=== PATIENT | female | born 2000 | race Caucasian/White ===

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

== ENCOUNTER 2023-03-15 16:27 | Outpatient (CLI) | payer BC, OTHER, SELFPAY ==
--- NOTE | ~2023-03-15 | XR_ITS ---
EXAM: XR knee RT min 4V, XR knee LT min 4V DATE: 03/15/2023 16:57 HISTORY: PAIN IN UNSPECIFIED KNEE . COMPARISON: None available. FINDINGS: Normal mineralization. No fracture or dislocation. No lytic or blastic lesion. Joint space s are maintained. No erosion or periosteal change. Soft tissues within normal limits. IMPRESSION: Normal bilateral knee radiograph findings. Reviewed, dictated and finalized at location K. IMPRESSION: Normal bilateral knee radiograph findings.
== END 2023-03-15 16:28 ==
PROVIDERS: PCP Family Medicine; Visit Provider Family Medicine
DX: M25.562 Pain in left knee (principal); M25.561 Pain in right knee
CPT/HCPCS: 73564

== ENCOUNTER 2023-06-17 07:49 | Outpatient (CLI) | payer OTHER, SELFPAY ==
--- NOTE | ~2023-06-17 | MR_ITS ---
EXAMINATION: MR knee RT wo con DATE: 06/17/2023 08:29 INDICATION: generalized right knee pain x4yrs worsening since 01/2022, TECHNIQUE: Magnetic resonance imaging (MRI) of the right knee was performed without intravenous contr ast. Sequences included axial PD-weighted FS FSE, coronal PD-weighted FSE and PD-weighted FS FSE, sag ittal PD-weighted FSE, and sagittal T2-weighted FS FSE. COMPARISON: X-ray knees 03/15/2023 FINDINGS: Medial compartment: Apical blunting at the junction of the anterior horn/body. Cartilage intact. Lateral compartment: Meniscus and cartilage intact. Patellofemoral compartment: Minimal signal abnormality in the medial facet cartilage. Retinacula intact. Ligaments and tendons: The ACL, PCL, MCL, and LCL are intact. Remaining flexor and extensor tendons are intact. Fluid: No significant fluid collection. Osseous/other: No suspicious focal or diffuse marrow signal. IMPRESSION: Minimal apical blunting of the medial meniscus at the junction of the anterior horn and body. Minimal chondromalacia patella. Reviewed, dictated and finalized at location K.
== END 2023-06-17 07:50 ==
PROVIDERS: PCP Family Medicine; Visit Provider Orthopaedic Surgery
DX: M25.561 Pain in right knee (principal)
CPT/HCPCS: 73721

== ENCOUNTER 2024-11-19 12:15 | Emergency (ER) | payer OTHER, SELFPAY ==
--- NOTE | ~2024-11-19 | US_ITS ---
EXAMINATION: US OB <=14 wk fetus w TV DATE: 11/19/2024 16:24 CHAIR CAR DRIVER INDICATION: Vaginal bleeding and abdominal cramps. Positive test. Serum quantitative beta hCG has not resulted at the time of this examination. COMPARISON: None TECHNIQUE: Real-time transabdominal and transvaginal obstetric ultrasound. FINDINGS: 1 para 0 The uterus measures 8.6 x 4.0 x 4.2 cm. No gestational sac is identified within the uterus. The endometrium is thickened measuring 11.4 mm. Subcentimeter nabothian cysts identified within the cervix. The right ovary measures 2.4 x 2.1 x 1.9 cm. Small follicles are present. The left ovary measures 2.7 x 2.4 x 1.9 cm. A well-circumscribed anechoic avascular focus is identified within the left ovary measuring 12.3 x 16 .2 x 9.6 mm. The remainder of the left ovary is unremarkable. A small amount of free fluid is identified within the posterior cul-de-sac. IMPRESSION: Vaginal bleeding with a positive test and no serum quantitative hCG at the time of this examination combined with a small amount of free fluid within the posterior cul-de-sac and t he cystic structure within the left ovary, an ectopic gestational sac cannot be excluded. Please correlate these findings with the serum beta hCG. Products of conception in a normal should be identifiable via transvaginal ultrasound when the beta hCG level is about 1500. Ultrasound images that do not reveal an intrauterine with beta hCG levels either at or abov e the discriminatory zone (greater than 2000) should raise concern for abnormal pathology, including ectopic , heterotopic , and mass. Reviewed, dictated and finalized at location A. R CAR DRIVER IMPRESSION: Vaginal bleeding with a positive test and no serum quanti tative hCG at the time of this examination combined with a small amount of free fluid within the posterior cul-de-sac and the cystic structure within the left ovary, an ectopic gestational sac cannot be excluded. Please correlate these findings with the serum beta hCG. Products of conception in a normal should be identifiable via transva ginal ultrasound when the beta hCG level is about 1500. Ultrasound images that do not reveal an intrauterine with beta hCG le vels either at or above the discriminatory zone (greater than 2000) should rais e concern for abnormal pathology, including ectopic , heterotopic preg zachariah, and mass.
[2024-11-19 12:19] VITALS: BP 129/73; PULSE 71; RESP 16; TEMP 36.8; O2SAT 100
--- OUTSIDE RECORDS SUMMARY | 2024-11-19 13:59 | XMS_ITS | Clinical Summary ---
Author Organization [facility] Address [facility] [place] [address] Care Team Providers Care Security Ambassador Name Role Phone Tomy Cee MD Primary Care Provider [phone] Allergies No known active allergies Medications 10/14 1-20 MG-MCG tablet Take 1 tablet by mouth daily. 4 9 Active predniSONE 10 mg tablet 40mg PO x3 days then 30mg PO x3 days then 20mg PO x3 days then 10mg PO x3 days 30 tablet 1 Active triamcinolone 0.1 % cream Apply topically 2 (two) times daily. 80 g 1 Active Social History Tobacco Use Types Packs/Day Years Used Date Smoking Tobacco: Never Smokeless Tobacco: Never Alcohol Use Standard Drinks/Week Comments No 0 (1 standard drink = 0.6 oz pur e alcohol) AUDIT-C Answer Date Recorded Frequency of Alcohol Consumption Never 06/23/2019 Average Number of Drinks Not on file 019 Frequency of Binge Drinking Not on file 05/27 Comments No Sex and Gender Information Value Date Recorded Sex Assigned at Not on file Legal Sex Female 7:08 PM CDT Gender Identity Not on file Sexual Orientation Not on file Last Filed Vital Signs Vital Sign Reading Time Taken Comments Blood Pressure 118/71 09/12/2022 4:49 PM CLINICAL SPECIALTY REP Pulse 112 09/12/2022 4:49 PM CLINICAL SPECIALTY REP Temperature 36.6 C (97.9 F) 09/12/2022 4:49 PM CLINICAL SPECIALTY REP Respiratory Rate 16 09/12/2022 4:49 PM CLINICAL SPECIALTY REP Oxygen Saturation 100% 09/12/2022 4:49 PM CLINICAL SPECIALTY REP Inhaled Oxygen Concentration - - Weight 72.6 kg (160 lb) 09/12/2022 4:49 PM CLINICAL SPECIALTY REP Height 170.2 cm (5' 7 ) 09/12/2022 4:49 PM CLINICAL SPECIALTY REP Body Mass Index 25.06 09/12/2022 4:49 PM CLINICAL SPECIALTY REP Plan of Treatment Health Maintenance Due Date Last Done Comments Cervical Cancer Screening Pa p Smear (Age 21 to 29) Every 3 Years 2001 Cervical Cancer Screening 2001 Annual Physical 2004 Meningococcal B Vaccine (1 o f 2 - Standard) 2017 Hepatitis C 2019 DTaP, Tdap and Td Vaccines ( 1 - Tdap) 2020 Hepatitis B Vaccines (1 of 3 - 19+ 3-dose series) 2020 COVID-19 Vaccine ( - 2023-2 5 season) 2024 Influenza Adult (#1) 2024 HPV Vaccines Completed 03/31/2014, 05/08/2013, 01/30/2013 Meningococcal Vaccine Completed 07/11/2018 , 01/30/2013 Pneumococcal Vaccine: Pediatrics (0 to 5 Years) and At-Risk Patients (6 to 64 Years) Aged Out No longer eligible b ased on patient's age to complete this topic RSV Immunizations Under 20 Months Aged Out No longer eligible b ased on patient's age to complete this topic Insurance [facility] [employer] BLUE SHIELD BLUE CROSS BLUE SHIELD Care Teams Security Ambassador Relationship Specialty Start Date End Date Tomy Cee MD [address] [place] [address] PCP - General FAMILY PRACTICE 06/23/19
--- OUTSIDE RECORDS SUMMARY | 2024-11-19 13:59 | XMS_ITS | Patient Health Summary ---
Author Organization [facility] Address [address] [place] [address] Care Team Providers Care Operations Analyst Name Role Phone Leanne Sanchez PT Primary Care Provider Yemi mcfarlane Note from [facility],non-owned Affiliates and Associated Physician Practices is amultiple site organization consisting of ambulatory clinics and hospital sitesin [place], [place], [place] and [place]. This disclosure is being madepursuant to the Care Everywhere program and may not contain all information available regarding this patient. Last updated 18.[facility] Allergies No known active allergies Medications * Be aware that medications may not be up to date on this document. Alwaysverify current medications with the patient. * Other Reasons: oral contraceptive unknown name * ciprofloxacin 0.3% (CILOXAN) 0.3 % ophthalmic solution(Started 01/10/2018) Instill 1 drop into both eyes every 2 hours while awake x2 days, then q4 hrs WA x 5 days. * predniSONE (DELTASONE) 20 MG tablet(Started 02/27/2021) 3 tabs PO QD x 3 days, 2 tabs PO QD x 3 days, 1 tab PO QD x 3 days * benzonatate (TESSALON) 200 MG capsule(Started 06/14/2021) Take 1 (one) capsule by mouth 3 times daily Active Problems No known active problems Social History Tobacco Use Types Packs/Day Years Used Date Smoking Tobacco: Never Smokeless Tobacco: Never PHQ-2 Answer Date Recorded PHQ2 TOTAL SCORE 0 02/27/2021 Sex and Gender Information Value Date Recorded Sex Assigned at Not on file Gender Identity Not on file Sexual Orientation Not on file Last Filed Vital Signs Vital Sign Reading Time Taken Comments Blood Pressure 107/61 06/14/2021 11:08 AM CDT Pulse 51 06/14/2021 11:08 AM CDT Temperature 36.7 C (98 F) 06/14/2021 11:08 AM CDT Respiratory Rate 18 06/14/2021 11:08 AM CDT Oxygen Saturation 99% 06/14/2021 11:08 AM CDT Inhaled Oxygen Concentration - - Weight 74.5 kg (164 lb 4.8 oz) 06/14/2021 11:08 AM CDT Height 170.2 cm (5' 7 ) 06/14/2021 11:08 AM CDT Body Mass Index 25.73 06/14/2021 11:08 AM CDT Procedures * SARS-COV-2 (COVID-19) IN HOUSE(Performed 05/18/2021) Performed for Screening for viral disease * SARS-COV-2 (COVID-19) PANEL (SOIL)(Performed 05/18/2021) Performed for Screening for viral disease Results * SARS-COV-2 (COVID-19) INTERNAL (05/18/2021 2:54 PM CDT) COVID-19 PCR Not detected Not detected 05/19/2021 3:58 PM CDT [facility] Microbiology SPECIMEN FROM NASOPHARYNGEAL STRUCTURE / Unknown Collection / Unknown 05/18/2021 2:54 PM CDT 05/18/2021 2:54 PM CDT Narrative [facility] - 05/19/2021 3:58 PM CDT This Real Time RT-PCR assay was developed and its performance characteristics determined by [facility]. This test has been authorized by the Food and Drug administration (FDA)under an Emergency Use Authorization (EUA). This test has been validated in accordance with the FDA's guidance document Policy for Diagnostic Testing in Laboratories Certified to perform High Complexity Testing under CLIA prior to Emergency Use Authorization for Coronavirus Disease-2019 during the Public Health Emergency issued on November 23, 2019. FDA independent review of this validation is pending. This test is only authorized for the duration of time the declaration that circumstances exist justifying the authorization of emergency use of in vitro diagnostic tests for detection of SARS-CoV-2 virus and/or diagnosis of COVID-19 infection under section 564(b)(1) of the Act, 21 U.S.C 360bbb-3 (b)(1), unless the authorization is terminated or revoked sooner. Fact Sheets for this EUA assay are available upon request. Symone Vasquesbritany Castillo DORMITORY COUNSELOR-HAMMER SHOP SUPERVISOR LAB - MICR OBIOLOGY ORDERABLES [facility] [address] [place], [place] [address], [facility] [phone] Care Teams Operations Analyst Relationship Specialty Start Date End Date Leanne Sanchez, PT PCP - General 08/08/12
--- OUTSIDE RECORDS SUMMARY | 2024-11-19 13:59 | XMS_ITS | Clinical Summary ---
Author Organization [facility] Address [address] [place] [address] Care Team Providers Care Superintendent Sanitation Name Role Phone Leanne Sanchez PT Primary Care Provider Yemi mcfarlane Source Comments [facility],non-owned Affiliates and Associated Physician Practices is amultiple site organization consisting of ambulatory clinics and hospital sitesin [place], [place], [place] and [place]. This disclosure is being madepursuant to the Care Everywhere program and may not contain all information available regarding this patient. Last updated 18.[facility] Allergies No known active allergies Medications * Be aware that medications may not be up to date on this document. Alwaysverify current medications with the patient. Medication Sig Dispensed Refills Start Date End Date Status OtherIndications:ora l contraceptive unknown name Reasons: oral contraceptive unknown name Active ciprofloxacin 0.3% (CILOXAN) 0.3 % ophthalmic solutionIndications: Other mucopurulent conjunctivitis of both eyes Instill 1 drop into both eyes every 2 hours while awake x2 days, then q4 hrs WA x 5 days. 10 mL 01/10/2018 Active predniSONE (DELTASONE) 20 MG tablet 3 tabs PO QD x 3 days, 2 tabs PO QD x 3 days, 1 tab PO QD x 3 days 18 tablet 02/27/2021 Active benzonatate (TESSALON) 200 MG capsule Take 1 (one) capsule by mouth 3 times daily 60 capsule 06/14/2021 Active Active Problems No known active problems Family History Relation Name Status Comments Mother Alive Social History Tobacco Use Types Packs/Day Years [...] Mass Index 25.73 06/14/2021 11:08 AM CDT Plan of Treatment Health Maintenance Due Date Last Done Comments PAP SMEAR 2001 HIV SCREENING 2016 HPV VACCINE (1 - 3-dose series) 2016 CHLAMYDIA/GONORRHEA SCREENING 2017 MENINGOCOCCAL (Group B) VACC INE (1 of 2 - Standard) 2017 HEPATITIS C SCREENING 11/14/2019 DTAP/TDAP/TD VACCINES (1 - Tdap) 2020 HEPATITIS B VACCINE (1 of 3 - 19+ 3-dose series) 2020 COVID-19 VACCINE (1 - 2023-2 5 season) 2024 INFLUENZA VACCINE (#1) 2024 DEPRESSION SCREENING 09/25/2024 ZOSTER VACCINE (1 of 2) 2051 HIB VACCINE Aged Out No longer eligi ble based on patient's age to complete this topic MENINGOCOCCAL VACCINE Aged Out No darlene frankie eligible based on patient's age to complete this topic PNEUMOCOCCAL VACCINE Aged Out No long er eligible based on patient's age to complete this topic Care Teams Superintendent Sanitation Relationship Specialty Start Date End Date Lenane Sanchez, PT PCP - General 08/08/12
--- OUTSIDE RECORDS SUMMARY | 2024-11-19 13:59 | XMS_ITS | Data Portability ---
Author Organization [facility], Main Office Address [address] [place] [address] Care Team Providers Care Lsw Name Role Phone LASHAY HORNER Primary Care Provider LASHAY HORNER Referring Provider Assessment Encounter Date Assessment Date Assessment LastModified by Organization Details LastModified Time 04/03/2023 04/03/2023 Impression: Patient has bilateral anterior knee pain syndrome. She was here with her mother today and I discussed that it is possible she may have some early wear of the cartilage surfaces to explain the apparent subtle narrowing of the patellofemoral joint space bilaterally but the x-rays are not very accurate and making that determination an MRI scan is much more accurate. 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 We talked about wearing optimal shoes that she would feel comfortable hiking and. She has been for bit to wear shoes at her current job. I have discussed with her that this problem is overuse problem that results in inflammation and sensitivity of the parapatellar soft tissues. I explained that in a deep squat the pressure the patellofemoral joint and the parapatellar soft tissues 7 times body weight and doing this excessively exacerbates the soreness. She has just a little over her ideal body weight and losing weight can be helpful. I recommended a course of physical therapy for her focusing on hamstring stretching as her hamstrings are somewhat tight and hip external rotation abduction and core strengthening. We will specifically avoid any quadriceps strength. She has excellent quadriceps bulk and strength bilaterally. To quiet down the inflammation will prescribe ibuprofen 800 mg 3 times a day for 4 weeks. Possible side effects were discussed she will take this with food. Was given instructions she described possible side effects. I will see her back in 6 weeks to assess her progress. 45 minutes were spent in total care this patient with more than half the time spent in vldb-sj-fuwn care. If her symptoms do not improve, we can consider MRI scan of either knee to evaluate for possible chondral lesion in the patellofemoral joint. Not available 04/09/2023 13:46:42 05/31/2023 05/31/2023 Patient returns for follow-up of anterior knee pain right greater than left. She was last seen 8 weeks ago. She went to physical therapy for 2 visits is been doing home exercises anterior knee pain protocol. She is now back in school so she has not been as consistent with her home exercise program. She is still taking ibuprofen averaging about 2 per day of the 800 mg tablets. Occasionally 3 times a day. She notes that her right knee is only slightly improved. Her left knee symptoms have resolved. The left knee was only mild before. She has noted that when she wore sandals a few days ago she had much more anterior knee pain on the right and she purchased a couple of pairs of [employer] shoes which have all better arch support that have been helpful. On exam today while supine her right leg is slightly internally rotated. She notes that she has in toed a little bit on the right throughout her life. In the prone position she has internal rotation of the right hip to 60 external rotation 40 which indicates increased femoral anteversion. There is no effusion in the right knee. She had full range of motion negative Zainab's no mediolateral joint line tenderness normal stability. Hip range of motion cause no discomfort negative Stinchfield maneuver. 5/5 quadriceps strength. She had moderate discomfort with patellofemoral grind and pain with patellofemoral inhibition test. Previous x-rays again do show patella Wendy. Impression: Patient has persistent anterior knee syndrome. She may have early degenerative changes of the patellofemoral joint that did not show well on x-ray. She has predisposing factors for this with the patella Roberts and increased femoral anteversion. I reiterated to her that she must avoid sandals and should wear shoes with arch support belt and at all times. Having no arch support allows the foot to over pronate which results in additional internal rotation posterior of the leg which aggravates patellofemoral pain. She should continue with her home exercise program for year to get optimal benefit from the core hip abduction external rotation strengthening exercises. I have discussed her the option of obtaining an MRI scan to evaluate for additional pathology. The most likely pathology given her symptomatology would be chondromalacia of the patella or possibly early degenerative changes of patellofemoral joint. She wants to speak with her mother about this before scheduling the MRI scan as she has under her mother's insurance and she will call us if she would like to proceed that. 20 minutes were spent total care this patient more than half the time spent in nqsc-hf-enbs care. Not available 05/31/2023 09:13:30 06/29/2023 06/29/2023 patient returns after MRI scan of her left knee. It shows no abnormalities. I reviewed the findings with the patient. The radiologist noted minimal apical blunting of the medial meniscus at junction of anterior horn and body. There are no nerve endings in this region of the meniscus in this would not be expected to cause any symptoms whatsoever. The articular cartilage in the patellofemoral joint looks perfect. No effusion the knee structures look normal. Patient notes that over the last month she has been doing much better overall. She has been wearing her schedule his tennis shoes she is avoiding her sandals. She has neglected to continue with her home exercise program and I have reviewed this with her today I would recommend she keep working on that until she is completely asymptomatic. She did have mild symptoms after she walked 30 minutes to a [employer] game. and a [address] to the game with her knee bent was a little bit uncomfortable but other than this is she is doing well. Impression: Anterior knee pain syndrome left knee. Patient is doing much better overall. It would seem that the biggest changes her no longer using the flip flops all the time and might of been a primary factor and by she developed this problem when she did. I am happy to see her back if she has further problems with this. Recheck p.r.n.. 20 minutes were spent total care this patient more than half the time spent in ebzj-bk-ceeo care. Not available 06/29/2023 15:41:57 Plan of Treatment Reminders Order Date Submit Date Provider Last Modified By Organization Details Last Modified Time Details Appointments None recorded. Lab None recorded. Referral None recorded. Procedures None recorded. Surgeries None recorded. Imaging None recorded. Medication Orders ibuprofen 800 mg tablet 2022 023 [id number], [address], [place], [place], [phone], 11:24:56 Patient TargetsNo targets recorded. Patient InstructionsNo instructions recorded. Reason for Referral None Reported. Results Created Date Observation Date Name Description Value Unit Range Abnormal Flag Note LastModifiedBy Organization Detail LastModifiedTime 03/17/20 23 03/15/2023 XR, knee, 4 or more view No observ ation record ed. [email or web address] Not Available 02/24 12:13:48 06/17/2006/17/2023 MRI, knee, w/o contr ast No observ ation record ed. [email or web address] [facility] [address], [place], [address], 06/20/2023 12:45:20 Result Notes None recorded. Problems Name Problem SNOMED Code Status Onset Date Resolution Date Notes Provider Name and Address Organization Details Recorded Time Pain of bilateral knee joints 61945278166956 4 Active 2022 ANTOLIN Craft null, [facility] [employer] [facility] 3 16:40:44 Pain of right knee joint 63789703474696 0 Active 2022 Taryn Garner CMA null, [employer] [facility] [employer] [facility] 3 16:16:00 Pain of left knee joint 25487562572174 7 Active 2022 ANTOLIN Craft null, [employer] [facility] [employer] [facility] 3 14:57:06 Problem Notes None recorded. Procedures Surgical History None recorded. Imaging Results Imaging Date Name Status LastModified by Organiz ation Details LastModified Time 03/15/2023 XR, knee, 4 or more view completed [email or web address] Information not available 03/17/2023 12:13:48 06/17/2023 MRI, knee, w/o contrast completed [email or web address] [facility] [address], [place], [address], 06/20/2023 12:45:20 Procedure Notes None recorded. Medical Equipment None Reported. Medications Name Sig Start Date Stop Date Status Note LastModified by Organization Details LastModified Time ibuprofen 800 mg tablet TAKE 1 TABLET BY MOUTH THREE TIMES DAILY. TAKE WITH FOOD active Not Available Not Available No t Available neomycin-jason ymyxin-dexam eth 3.5 mg/mL-10,000 unit/mL-0.1% eye drops INSTILL 1 DROP IN RIGHT EYE FOUR TIMES DAILY FOR 4 DAYS 04/03 completed Not Available Not Available Not Available amoxicillin 875 mg-potassium clavulanate 125 mg tablet TAKE 1 TABLET BY MOUTH EVERY 12 HOURS FOR 10 DAYS 04/03 completed Not Available Not Available Not Available Vitals Date Recorded Body height Body mass index (BMI) Body weight Provider Name and Address Organization Details Last Updated DateTime 04/03/2023 167.64 cm 26.1 kg/m2 89879.96 g Cassandra BarrINNAJarocho [facility] [employer] 04/03/2023 16:42:53 Date Recorded Body height Provider Name an d Address Organization Details Last Updated DateTime 05/31/2023 167.64 cm Cassandra ANTOLIN Barr [facility] 05/31/2023 08:42:29 Date Recorded Body height Provider Name an d Address Organization Details Last Updated DateTime 06/29/2023 167.64 cm Cassandra ANTOLIN Barr [facility] 06/29/2023 14:56:24 Social History Question Answer Notes LastModified by Organizat ion Details LastModified Time Tobacco Smoking Status Never Smoker Cassandra Barr [facility] 04/03/2023 16:40:18 What Is Your Level Of Alcohol Consumption? None [email or web address] Information not available 04/03/2023 Sex: Unknown Functional Status None recorded. Mental Status None recorded. Family History Nothing Reported. Medical History No medical history recorded. Gynecological HistoryNo gynecological history recorded. Obstetrics History GPAL:G 0 P 0 0 0 0 Past Encounters Encounter ID Performer Location Encounter Start Date Encounter Closed Date Diagnosis/Indication Diagnosis SNOMED-CT Code Diagnosis ICD10 Code Diagnosis Note [id number] Rico Costa MD [facility] [place] [address] [place] [address] 04/03/2023 16:18:21 04/10/2023 09:57:09 Pain of bilateral knee joints [id number] 94136 M25.561 M25.394 [id number] Rico Costa MD [facility] [place] [address] [place] [address] 05/31/2023 08:37:46 05/31/2023 09:16:28 Pain of bilateral knee joints 7290779860 61684 M25.561 M25.742 [id number] Rico Costa MD [facility] [address] [address] 06/29/2023 14:54:35 06/29/2023 15:46:33 Pain of left knee joint [id number] 32014 M25.562 Health Concerns Section Related Observation LastModified by Organization Detai ls LastModified Time None Recorded Concern Status LastModified by Organization Details LastModified Time None Recorded Advance Directives Directive None Recorded Payers Encounter Date Sequence Insurance Name Policy Number Policy Vernon Covered Member ID Vernon Member ID Guarantor Name 04/03/2023 1 R [id number] Laury Garber [id number] Flori Garber 05/31/2023 1 UMR [id number] Laury Garber [id number] Flori Garber 06/29/2023 1 UMR [id number] Laury Garber [id number] Flori Garber Notes Date Note Type Note Provider Name and Address Organization Details Recorded Time 04/03/2023 text/html patient is 82-year-old female who presents for evaluation of her bilateral knee pain. She has had symptoms for years off and on. 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 Her right knee causes discomfort if she sits or stands too long anteromedially and anterolaterally. Her left bothers her less frequently but if she kneels on it she has severe pain in the anterior aspect of her left knee and will remain sore for a couple of days afterwards. One month ago after such an incident she had pain all day. 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 She had an evaluation of her knee pain 2019 at a course of physical therapy [facility] her [facility]. She notes a history of fracture in the left foot 7 great. She rarely takes 800 mg ibuprofen. She has tolerated these the past. Especially sitting in movie she does not tolerate sitting too long with her right knee flexed. She had x-rays of her left knee And right knee at [facility] 03/15/2023. There were no abnormalities noted with the radiologist. These views including standing AP standing lateral sunrise And standing Views in some degree of flexion. Insall ratio measured from lateral views was 1.5 indicating that she has patella Roberts bilaterally. [place] views suggest that she may have some joint space narrowing to the lateral trochlea and lateral facet bilaterally. there is subtle widening of the medial patellofemoral joint space associated. Her patellae track centrally bilaterally. There are no hypertrophic changes or subchondral bone irregularities noted. Rico Costa MD [address] [place] [address], [facility] [address], [place], [address], [facility] 04/09/2023 13:46:53 OBGyn Episode No OBEpisode recorded.
--- OUTSIDE RECORDS SUMMARY | 2024-11-19 13:59 | XMS_ITS | Referral Summary ---
Author Organization [facility] Address [address] [place] [address] Care Team Providers Care Textile Coating Machine Operator Name Role Phone Leanne Sanchez PT Primary Care Provider Yemi mcfarlane Source Comments [facility] [employer] [facility],non-owned Affiliates and Associated Physician Practices is amultiple site organization consisting of ambulatory clinics and hospital sitesin [place], [place], [place] and [place]. This disclosure is being madepursuant to the Care Everywhere program and may not contain all information available regarding this patient. Last updated 18.[facility] [employer] [facility] Allergies No known active allergies Medications * [...] Active Active Problems No known active problems Social [...] 06/14/2021 11:08 AM CDT Plan of Treatment Not on file Care Teams Textile Coating Machine Operator Relationship Specialty Start Date End Date Leanne Sanchez, PT PCP - General 08/08/12
[2024-11-19 14:10] VITALS: BP 122/65; PULSE 66; RESP 14; TEMP 36.4; O2SAT 100
[2024-11-19 16:20] LABS: Basophils Percent Auto 0.5 % (0.2-1.2); Eosinophils Absolute Auto 0.1 K/mm3 (0-0.3); Eosinophils Percent Auto 1.5 % (0-4.4); Hematocrit 41.9 % (37.0-47.0); Hemoglobin 13.4 g/dL (12.0-15.0); Immature Granulocyte Absolute 0.03 K/mm3 (0.00-0.031); Immature Granulocyte Percent A 0.4 % (0-0.5); Lymphocytes Absolute Auto 2.28 K/mm3 (0.9-3.2); Lymphocytes Percent Auto 26.7 % (18.3-44.2); Mean Corpuscular Hemoglobin 28.9 pg (26-34); Mean Corpuscular Volume 90.5 fl (80-100); Mean Platelet Volume 9.9 fl (7.4-10.4); Monocytes Absolute Auto 0.7 K/mm3 (0.1-0.6); Monocytes Percent Auto 7.6 % (2.6-8.5); Neutrophils Absolute Auto 5.4 K/mm3 (1.3-6.7); Neutrophils Percent Auto 63.3 % (45.5-73.1); Platelet Count Result 224 k/mm3 (150-375); Red Blood Count 4.63 M/mm3 (4.2-5.4); Red Cell Distribution Width 12.1 % (11.5-14.5); White Blood Count 8.6 K/mm3 (4.5-10.0)
[2024-11-19 16:23] LABS: BEDSIDEPREGUCG Positive (Negative)
[2024-11-19 16:27] LABS: Alanine Aminotransferase 17 U/L (6-35); Albumin Level 4.4 g/dL (3.5-5.1); Alkaline Phosphatase 58 U/L (38-126); Anion Gap 7 mmol/L (4-12); Aspartate Amino Transferase 22 U/L (14-36); Bilirubin,Total 0.5 mg/dL (0.2-1.3); Blood Urea Nitrogen 6 mg/dL (7-17); Calcium 9.4 mg/dL (8.4-10.2); Carbon Dioxide 28 mmol/L (22-30); Chloride 106 mmol/L (98-107); Estimated CRCL calculation 150 ml/min; Estimated Glomerular Filt Rate > 60; Glucose 88 mg/dL (65-110); Potassium 3.7 mmol/L (3.4-5.0); Sodium 141 mmol/L (137-145)
[2024-11-19 16:35] LABS: INR 0.9; Prothrombin Time 12.7 Seconds (11.1-14.7)
[2024-11-19 16:36] LABS: Partial Thromboplastin Time 28.7 Seconds (22.3-36.8)
[2024-11-19 16:42] LABS: Beta HCG Quantitative 241.28 mIU/ML
--- NOTE | 2024-11-19 17:47 | ED.PREGNANCY ---
HPI - General Chief complaint: Vaginal Bleeding Stated complaint: 5 weeks preg, vaginal bleeding Time Seen by Provider: 11/19/24 17:15 History of Present Illness HPI Narrative: Patient is a 24-year-old female who presents to the ER with complaints of vaginal bleeding following a positive test. She reports she had an appointment set up with an OBGYN on 03 December, but called him today and they advised her to come to the ER for evaluation. Patient reports her last menstrual period was around October 12, 2024. Earlier today she started noticing vaginal bleeding that has led to a fair amounts of clots and vaginal discomfort. Patient denies any other medical history related to this ER visit. She denies any urinary symptoms, abdominal pain, back pain, recent fevers, or signs/symptoms of infection. Related Data Allergies Allergy/AdvReac Type Severity Reaction Status Date / Time No Known Allergies Allergy Verified 09/30/20 09:15 Review of Systems Review of Systems: All systems reviewed & are unremarkable except as noted in HPI and below PMFSH Past Medical History Medical History Healthy adolescent Family History Family History Grandparent Carcinoma of colon Social History Social History Smoking status: Never smoker Alcohol intake: never Substance use: never Exam Narrative: GENERAL: Well appearing, well-nourished, non-toxic, in no acute distress. HEAD: Normocephalic, atraumatic. NECK: Supple. No adenopathy, no masses. RESPIRATORY: Airway patent, respirations nonlabored. Clear to auscultation bilaterally, no rales, rhonchi, wheezing. CARDIOVASCULAR: Regular rate and rhythm without murmurs, rubs, or gallops. Peripheral pulses 2+ and equal bilaterally. ABDOMINAL: Soft, nontender, nondistended, no hepatosplenomegaly. Normoactive BS. MUSCULOSKELETAL: Moves all extremities. Strength/ROM intact without gross deformities. SKIN: Warm, dry, normal color. No rashes. NEURO: A&O X3. Speech clear. Cranial nerves II-XII grossly intact. No ataxic movements. PSYCHIATRIC: Appropriate mood and affect. Normal interaction. *Pt declined a vaginal exam. Course Vital Signs Vital signs: Vital Signs Temperature 36.8 C 11/19/24 12:19 Pulse Rate 71 11/19/24 12:19 Respiratory Rate 16 11/19/24 12:19 Blood Pressure 129/73 11/19/24 12:19 Pulse Oximetry 100 11/19/24 12:19 Temperature 36.4 C L 11/19/24 14:10 Pulse Rate 66 11/19/24 14:10 Respiratory Rate 14 11/19/24 14:10 Blood Pressure 122/65 11/19/24 14:10 Pulse Oximetry 100 11/19/24 14:10 MDM - OB/Uterine Contractions MDM Narrative Medical decision making narrative: Patient is a 24-year-old female who presents to the ER with complaints of vaginal bleeding following a positive test. She reports she had an appointment set up with an OBGYN on 03 December, but called him today and they advised her to come to the ER for evaluation. Patient reports her last menstrual period was around October 12, 2024. Earlier today she started noticing vaginal bleeding that has led to a fair amounts of clots and vaginal discomfort. Patient denies any other medical history related to this ER visit. She denies any urinary symptoms, abdominal pain, back pain, recent fevers, or signs/symptoms of infection. Labs Ordered: CBC, CMP, beta hCG quant, INR, APTT, UA Imaging Ordered: Pelvic ultrasound Medications Ordered: None necessary Results: Pt's ultrasound indicates Vaginal bleeding with a positive test and no serum quantitative hCG at the time of this examination combined with a small amount of free fluid within the posterior cul-de-sac and the cystic structure within the left ovary, an ectopic gestational sac cannot be excluded. Patient's urinalysis unremarkable for urinary tract infection. Diagnosis: Threatened miscarriage, vaginal bleeding Consults: None necessary (pt already has an OBGYN established) Patient Education/Shared MDM: Results shared with patient. She was advised to call her OBGYN tomorrow for repeat HCG levels and follow-up. Patient strongly advised to maintain hydration status upon discharge. She will be discharged home with no new prescriptions. Strict return precautions provided. Patient verbalized understanding is in agreement with plan. Vital signs stable at time of discharge. All questions answered. Differential Diagnosis Differential diagnosis: Likely other (threatened miscarriage, urinary tract infection, subchorionic hemorrhage, ectopic ) Lab Data Attestation: I reviewed the patient's lab results. 11/19/24 16:09 11/19/24 16:09 Labs: Lab Results 11/19/24 11/19/24 11/19/24 Range/Units 16:09 16:18 17:55 WBC 8.6 (4.5-10.0) K/mm3 RBC 4.63 (4.2-5.4) M/mm3 Hgb 13.4 (12.0-15.0) g/dL Hct 41.9 (37.0-47.0) % MCV 90.5 (80-100) fl MCH 28.9 (26-34) pg MCHC 32.0 (32-36) g/dl RDW 12.1 (11.5-14.5) % Plt Count 224 (150-375) k/mm3 MPV 9.9 (7.4-10.4) fl Immature Gran % (Auto) 0.4 (0-0.5) % Neut % (Auto) 63.3 (45.5-73.1) % Lymph % (Auto) 26.7 (18.3-44.2) % [place] % (Auto) 7.6 (2.6-8.5) % Eos % (Auto) 1.5 (0-4.4) % Baso % (Auto) 0.5 (0.2-1.2) % Lymph # (Auto) 2.28 (0.9-3.2) K/mm3 [place] # (Auto) 0.7 H (0.1-0.6) K/mm3 Eos # (Auto) 0.1 (0-0.3) K/mm3 Baso # (Auto) 0.0 (0.0-0.1) K/mm3 Abs Immat Gran (auto) 0.03 (0.00-0.031) K/mm3 Absolute Neuts (auto) 5.4 (1.3-6.7) K/mm3 Absolute Nucleated RBC 0.000 (0.0-0.012) K/mm3 Nucleated RBC % 0.0 (0.0-0.2) % PT 12.7 (11.1-14.7) Seconds INR 0.9 APTT 28.7 (22.3-36.8) Seconds Sodium 141 (137-145) mmol/L Potassium 3.7 (3.4-5.0) mmol/L Chloride 106 (98-107) mmol/L Carbon Dioxide 28 (22-30) mmol/L Anion Gap 7 (4-12) mmol/L BUN 6 L (7-17) mg/dL Creatinine 0.47 L (0.7-1.0) mg/dL Estim Creat Clear Calc 150 ml/min Estimated GFR > 60 (59 - ) Glucose 88 (65-110) mg/dL Calcium 9.4 (8.4-10.2) mg/dL Total Bilirubin 0.5 (0.2-1.3) mg/dL AST 22 (14-36) U/L ALT 17 (6-35) U/L Alkaline Phosphatase 58 (38-126) U/L Total Protein 7.0 (6.3-8.2) g/dL Albumin 4.4 (3.5-5.1) g/dL Beta HCG, Quant 241.28 mIU/ML Urine Color Yellow (Yellow) Urine Appearance Clear (Clear) Urine pH 7.5 (5.0-9.0) Ur Specific [place] 1.004 (1.001-1.035) Urine Protein Negative (Negative) mg/dL Urine Glucose (UA) Negative (Negative) mg/dL Urine Ketones Negative (Negative) mg/dL Ur Blood (Man) 1+ H (Negative) Urine Nitrate Negative (Negative) Urine Bilirubin Negative (Negative) Urine Urobilinogen 0.2 (<2.0) mg/dL Add Ur Microanalysis Reviewed Leukocyte Esterase Rfl Negative (Negative) MELINA/UL Urine RBC 0-2 (0-2) /hpf Urine WBC 0-5 (0-3) /hpf Ur Squamous Epith Cells None seen (Few) /hpf Urine Bacteria None seen /hpf Urine Casts 0-2 POC Urine HCG, Qual Positive (Negative) Blood Type AB Positive Antibody Screen Negative Screen Not Reportable Baby's Blood Type Not Reportable Baby's SAGE Not Reportable Doses of RhIg Required 0 Imaging Data Attestation: I personally reviewed and interpreted this imaging study as follows: Radiologist's impression: Impressions Obstetrics Ultrasound 11/19/24 16:24 IMPRESSION: Vaginal bleeding with a positive test and no serum quantitative hCG at the time of this examination combined with a small amount of free fluid within the posterior cul-de-sac and the cystic structure within the left ovary, an ectopic gestational sac cannot be excluded. Please correlate these findings with the serum beta hCG. Products of conception in a normal should be identifiable via transvaginal ultrasound when the beta hCG level is about 1500. Ultrasound images that do not reveal an intrauterine with beta hCG levels either at or above the discriminatory zone (greater than 2000) should raise concern for abnormal pathology, including ectopic , heterotopic , and mass. Discharge Plan Discharge Clinical Impression: Vaginal bleeding, Threatened Patient Disposition: Home, Self-Care Condition: Stable Instructions: Antibiotic Form, Threatened Miscarriage (ED) Additional Instructions: Please return to the ER with an worsening symptoms, including severe abdominal pain or increased vaginal bleeding. Follow-up with your OBGYN tomorrow. No new medications were prescribed. Patient Language: Croatian Prescriptions: No Action norgestimate-ethinyl estradiol [Ortho Tri-Cyclen (28)] 0.18/0.215/0.25 mg-35 mcg (28) tablet 1 tablet PO DAILY Qty: 84 3RF Follow-up/Referrals: Tomy Cee MD [Primary Care Provider] - Stand Alone Forms: Work/School Release IP Time of Disposition: 17:59
[2024-11-19 18:16] LABS: Add Urine Microscopic? YES; Appearance Urine Clear (Clear); Bacteria Urine None Seen /hpf; Bilirubin Urine Negative (Negative); Blood Urine 1+ (Negative); Color Urine Yellow (Yellow); Glucose Urine UA Negative (Negative); Ketones Urine Negative (Negative); Leukocyte Esterase Ur Negative LEU/UL (Negative); Need Manual Microscopic Reviewed; Nitrate Urine Negative (Negative); Non Pathogenic Casts 0-2; Protein Urine Negative (Negative); RBC Urine 0-2 /hpf (0-2); Specific Grav Ur 1.004 (1.001-1.035); Squamous Epithelial Cell Urine None Seen /hpf (Few); Urobilinogen Urine 0.2 mg/dL (<2.0); WBC Urine 0-5 /hpf (0-3); pH Urine 7.5 (5.0-9.0)
--- OUTSIDE RECORDS SUMMARY | 2024-11-19 18:59 | XMS_ITS | Referral Summary ---
Author Organization [facility] Address [address] [place] [address] Care Team Providers Care Transplant Registered Nurse Name Role Phone Leanne Sanchez PT Primary Care Provider Yemi mcfarlane Source Comments [facility],non-owned Affiliates and Associated Physician Practices is amultiple site organization consisting of ambulatory clinics and hospital sitesin [place], [place], [place] and [place]. This disclosure is being madepursuant to the Care Everywhere program and may not contain all information available regarding this patient. Last updated 18.[facility] Allergies No known active allergies Medications * [...] of Treatment Not on file Care Teams Transplant Registered Nurse Relationship Specialty Start Date End Date Leanne Sanchez, PT PCP - General 08/08/12
--- OUTSIDE RECORDS SUMMARY | 2024-11-19 18:59 | XMS_ITS | Clinical Summary ---
Author Organization [facility] Address [address] [place] [address] Care Team Providers Care Student Assistance Counselor Name Role Phone Leanne Sanchez PT Primary Care Provider Yemi mcfarlane Source Comments [facility],non-owned Affiliates and Associated Physician Practices is amultiple site organization consisting of ambulatory clinics and hospital sitesin [place], [place], [place] and [place]. This disclosure is being madepursuant to the Care Everywhere program and may not contain all information available regarding this patient. Last updated 18.[facility] Allergies No known active allergies Medications * [...] age to complete this topic Care Teams Student Assistance Counselor Relationship Specialty Start Date End Date Leanne Sanchez, PT PCP - General 08/08/12
--- OUTSIDE RECORDS SUMMARY | 2024-11-19 18:59 | XMS_ITS | Patient Health Summary ---
Author Organization [facility] Address [address] [place] [address] Care Team Providers Care Tobacco Stemmer Machine Name Role Phone Leanne Sanchez PT Primary Care Provider Yemi mcfarlane Note from [facility] [place],non-owned Affiliates and Associated Physician Practices is amultiple site organization consisting of ambulatory clinics and hospital sitesin [place], [place], [place] and [place]. This disclosure is being madepursuant to the Care Everywhere program and may not contain all information available regarding this patient. Last updated 18.[facility] Allergies No known active allergies Medications * [...] detected Not detected 05/19/2021 3:58 PM CDT [facility] Microbiology SPECIMEN FROM NASOPHARYNGEAL STRUCTURE / Unknown Collection / Unknown 05/18/2021 2:54 PM CDT 05/18/2021 2:54 PM CDT Narrative [facility] - 05/19/2021 3:58 PM CDT This Real Time RT-PCR assay was developed and its performance characteristics determined by [facility]. This test has been authorized [...] are available upon request. Symone Vasquesbritany Castillo LAWN SPRINKLER INSTALLER-CABINET BUILDER LAB - MICR OBIOLOGY ORDERABLES [facility] [address] [place], [place] [address], [facility] [phone] Care Teams Tobacco Stemmer Machine Relationship Specialty Start Date End Date Leanne Sanchez, PT PCP - General 08/08/12
== END 2024-11-19 18:22 | disposition home or self-care (01) ==
PROVIDERS: Physician Assistant; Emergency Provider Registered Nurse; PCP Family Medicine
DX: O20.0 Threatened abortion (principal); Z3A.01 Less than 8 weeks gestation of pregnancy
CPT/HCPCS: 36415; 76801; 76817; 80053; 81001; 81025; 84702; 85025; 85461; 85610; 85730; 86850; 86900; 86901; 99284

== ENCOUNTER 2024-11-28 16:47 | Outpatient (CLI) | payer OTHER, SELFPAY ==
--- OUTSIDE RECORDS SUMMARY | 2024-11-28 17:06 | XMS_ITS | Clinical Summary ---
Author Organization [facility] Address [address] [place] [address] Care Team Providers Care Customer Account Coordinator Name Role Phone Leanne Sanchez PT Primary Care Provider Yemi mcfarlane Source Comments [facility],non-owned Affiliates and Associated Physician Practices is amultiple site organization consisting of ambulatory clinics and hospital sitesin [place], [place], [place] and [place]. This disclosure is being madepursuant to the Care Everywhere program and may not contain all information available regarding this patient. Last updated 18.[facility] Allergies No known active allergies Medications * [...] age to complete this topic Care Teams Customer Account Coordinator Relationship Specialty Start Date End Date Leanne Sanchez, PT PCP - General 08/08/12
--- OUTSIDE RECORDS SUMMARY | 2024-11-28 17:06 | XMS_ITS | Patient Health Summary ---
Author Organization [facility] Address [address] [place] [address] Care Team Providers Care Lna Name Role Phone Leanne Sanchez PT Primary Care Provider Yemi mcfarlane Note from [facility],non-owned Affiliates and Associated Physician Practices is amultiple site organization consisting of ambulatory clinics and hospital sitesin [place], [place], [place] and [place]. This disclosure is being madepursuant to the Care Everywhere program and may not contain all information available regarding this patient. Last updated 18.[facility] Allergies No known active allergies Medications [...] detected Not detected 05/19/2021 3:58 PM CDT [facility]CRO[facility] Microbiology SPECIMEN FROM NASOPHARYNGEAL STRUCTURE / Unknown Collection / Unknown 05/18/2021 2:54 PM CDT 05/18/2021 2:54 PM CDT Narrative [facility] - 05/19/2021 3:58 PM CDT This Real Time RT-PCR assay was developed and its performance characteristics determined by [facility]. This test has been authorized [...] are available upon request. Symone Vasquesbritany Castillo SUPERVISOR CURING ROOM-AUTOMOTIVE ELECTRICAL HELPER LAB - MICR OBIOLOGY ORDERABLES [facility] [address] [place], [place] [address], [facility] [phone] Care Teams Lna Relationship Specialty Start Date End Date Leanne Sanchez, PT PCP - General 08/08/12
--- OUTSIDE RECORDS SUMMARY | 2024-11-28 17:06 | XMS_ITS | Referral Summary ---
Author Organization [facility] Address [address] [place] [address] Care Team Providers Care Earring Maker Name Role Phone Leanne Sanchez PT Primary Care Provider Yemi mcfarlane Source Comments [facility] [employer],non-owned Affiliates and Associated Physician Practices is amultiple site organization consisting of ambulatory clinics and hospital sitesin [place], [place], [place] and [place]. This disclosure is being madepursuant to the Care Everywhere program and may not contain all information available regarding this patient. Last updated 18.[facility] Allergies No known active allergies Medications * [...] of Treatment Not on file Care Teams Earring Maker Relationship Specialty Start Date End Date Leanne Sanchez, PT PCP - General 08/08/12
--- OUTSIDE RECORDS SUMMARY | 2024-11-28 17:06 | XMS_ITS | Clinical Summary ---
Author Organization [facility] Address [facility] [place] [address] Care Team Providers Care Instructor Substitute Cosmetology Name Role Phone Tomy Cee MD Primary Care Provider [phone] Allergies No known active allergies Medications 10/14 [...] Comments Blood Pressure 118/71 09/12/2022 4:49 PM UNION REPRESENTATIVE Pulse 112 09/12/2022 4:49 PM UNION REPRESENTATIVE Temperature 36.6 C (97.9 F) 09/12/2022 4:49 PM UNION REPRESENTATIVE Respiratory Rate 16 09/12/2022 4:49 PM UNION REPRESENTATIVE Oxygen Saturation 100% 09/12/2022 4:49 PM UNION REPRESENTATIVE Inhaled Oxygen Concentration - - Weight 72.6 kg (160 lb) 09/12/2022 4:49 PM UNION REPRESENTATIVE Height 170.2 cm (5' 7 ) 09/12/2022 4:49 PM UNION REPRESENTATIVE Body Mass Index 25.06 09/12/2022 4:49 PM UNION REPRESENTATIVE Plan of Treatment Health Maintenance Due Date [...] patient's age to complete this topic Insurance [facility] [email or web address] BLUE SHIELD BLUE CROSS BLUE SHIELD Care Teams Instructor Substitute Cosmetology Relationship Specialty Start Date End Date Tomy Cee MD [address] [place] [address] PCP - General FAMILY PRACTICE 06/23/19
[2024-11-28 17:44] LABS: Beta HCG Quantitative < 2.39 mIU/ML
[2024-11-29 20:39] LABS: Lupus dRVVT Screen 30 sec (< OR = 45); PTT-LA Screen 29 sec (< OR = 40)
== END 2024-11-28 16:48 | disposition home or self-care (01) ==
LOC: ANHLAB 16:49
PROVIDERS: PCP Family Medicine; Visit Provider Student in an Organized Health Care Education/Training Program
DX: O20.0 Threatened abortion (principal); Z3A.00 Weeks of gestation of pregnancy not specified
CPT/HCPCS: 36415; 84702; 85613; 85730

== ENCOUNTER 2024-12-07 09:55 | Emergency (ER) | payer OTHER, SELFPAY ==
[2024-12-07 10:16] VITALS: BP 137/104; PULSE 104; RESP 16; TEMP 37.2; O2SAT 99
[2024-12-07 10:20] VITALS: O2SAT 98
--- NOTE | 2024-12-07 10:21 | ED.URI ---
HPI - URI/Sore Throat General Chief Complaint: Upper Respiratory Infection Stated Complaint: headache, cough, runny nose, stomach hurts Time Seen by Provider: 12/07/24 10:23 Source: patient and RN notes reviewed Mode of arrival: ambulatory Limitations: no limitations History of Present Illness HPI Narrative: 24 y/o female presented for c/o cough, sore throat, headache, and nasal congestion. Onset 3 days. Reports a temp 2 days ago up to 102 which has resolved. Denies sob, wheezing, n/v/d. MD elicited complaint: cough Related Data Home Medications ?Medication ?Instructions ?Recorded ?Confirmed ?Last Taken ?Type docosahexaenoic acid 200 mg mg PO 11/28/24 Unknown History capsule ( DHA) Allergies Allergy/AdvReac Type Severity Reaction Status Date / Time No Known Allergies Allergy Verified 12/07/24 10:42 Review of Systems Review of Systems: per HPI [facility] Past Medical History Medical History Spontaneous Healthy adolescent Family History Family History Grandparent Carcinoma of colon Social History Social History Smoking status: Never smoker Alcohol intake: never Substance use: never Substance use type: does not use Do You Feel Safe in your Home?: Yes Lack of Transportation: No Lack of Food: Never True Current Housing: I Have Housing Concerned About Future Housing: No Difficulty Paying Gas/Electric Bills: No Difficulty Paying for Meds: No Currently Unemployed: No Education: Bachelor's Degree Difficulty w/ Childcare or Family Care: No Living arrangements: with family Occupation/Education: occupation Gender identity (if verbalized by the patient): Female Sexual Orientation (if Verbalized by the Patient): Straight or Heterosexual Exam Narrative: GENERAL: mildly Ill-appearing, nontoxic EYES: PERRLA, conjunctivae clear ENT: Mucous membranes moist. TMs pearly yuen with dull light reflex bilaterally; no tragal tenderness. Oropharynx not erythematous without lesions or exudate, no drooling, no hoarseness, no trismus, uvula midline. No tripod positioning, muffled voice, soft palate or pharyngeal wall bulging NECK: Supple. No lymphadenopathy CHEST: Clear to auscultation, breath sounds equal. No wheezing, rhonchi, rales, or stridor. No respiratory distress, speaks in full sentences. HEART: Regular rate and rhythm. SKIN: Warm, dry, no rash. NEURO: Alert and oriented x3. PSYCH: Normal mood and affect Course Course Emergency Course: Patient is aware of diagnosis, understands and agrees to treatment plan. Anticipatory guidance given. Patient agrees to follow-up as directed and is aware of reasons to seek care at the emergency department. Portions of this record may have been created with voice recognition software Level of Care: Express Care Visit Vital Signs Vital signs: Vital Signs Temperature 98.9 F 12/07/24 10:16 Pulse Rate 104 H 12/07/24 10:16 Respiratory Rate 16 12/07/24 10:16 Blood Pressure 137/104 H 12/07/24 10:16 Pulse Oximetry 99 12/07/24 10:16 Oxygen Delivery Room Air 12/07/24 10:16 Temperature 98.9 F 12/07/24 10:16 Pulse Rate 104 H 12/07/24 10:16 Respiratory Rate 16 12/07/24 10:16 Blood Pressure 137/104 H 12/07/24 10:16 Pulse Oximetry 98 12/07/24 10:20 Oxygen Delivery Room Air 12/07/24 10:20 reviewed MDM - URI/Sore Throat MDM Narrative Medical decision making narrative: POS flu. Discussed physical exam findings. Advised supportive measures and signs/symptoms to go to the ER. Pt is appropriate for outpt treatment and f/u. Differential Diagnosis Differential diagnosis: Likely upper respiratory infection, sinusitis, viral infection, influenza and pharyngitis Lab Data Labs: Lab Results 12/07/24 Range/Units 10:39 POC Influenza A Ag Negative (Negative) POC Influenza B Ag Positive (Negative) POC SARS CoV-2 Ag Negative (Negative) Discharge Plan Discharge Clinical Impression: Influenza Patient Disposition: Home, Self-Care Condition: Stable Instructions: Influenza (ED) Additional Instructions: Influenza positive You should avoid crowds until you are fever free for 24 hours without the use of fever reducing medications, or the symptoms are improved Rest. Drink plenty of fluids. Tylenol 1000mg every 8 hours as needed for pain/fever Flonase spray and Zyrtec (or Claritin/Joselin) for sinus pressure/congestion over the counter Cough syrup may cause drowsiness; avoid driving or take it at night time. Follow up with your primary care provider as needed Go to the ER for worsening symptoms or concerns Patient Language: Taiwanese Prescriptions: No Action DHA 200 mg capsule PO Follow-up/Referrals: Tomy Cee MD [Primary Care Provider] - Time of Disposition: 10:59
[2024-12-07 10:41] LABS: EDCOVIDSCREEN Negative (Negative); EDINFLUASCREEN Negative (Negative); EDINFLUBSCREEN Positive (Negative)
== END 2024-12-07 11:05 | disposition home or self-care (01) ==
PROVIDERS: Emergency Provider Nurse Practitioner Family; PCP Family Medicine
DX: J10.1 Influenza due to other identified influenza virus with other respiratory manifestations (principal); Z20.822 Contact with and (suspected) exposure to COVID-19
CPT/HCPCS: 87426; 87804; 99212; G0463

== ENCOUNTER 2025-03-17 16:27 | Outpatient (CLI) | payer OTHER, SELFPAY ==
[2025-03-17 17:14] LABS: Beta HCG Quantitative 342.73 mIU/ML
[2025-03-18 05:37] LABS: Progesterone. 18.7 ng/mL
== END 2025-03-17 16:28 | disposition home or self-care (01) ==
LOC: ANHLAB 16:28
PROVIDERS: PCP Physician Assistant Medical; Visit Provider Student in an Organized Health Care Education/Training Program
DX: N91.2 Amenorrhea, unspecified (principal)
CPT/HCPCS: 36415; 84144; 84702

== ENCOUNTER 2025-03-19 15:03 | Outpatient (CLI) | payer OTHER, SELFPAY ==
[2025-03-19 15:45] LABS: Beta HCG Quantitative 795.63 mIU/ML
== END 2025-03-19 15:04 | disposition home or self-care (01) ==
LOC: ANHLAB 15:04
PROVIDERS: PCP Physician Assistant Medical; Visit Provider Student in an Organized Health Care Education/Training Program
DX: N91.2 Amenorrhea, unspecified (principal)
CPT/HCPCS: 36415; 84702

== ENCOUNTER 2025-09-01 15:22 | Outpatient (CLI) | payer OTHER, SELFPAY ==
[2025-09-01 18:29] LABS: Hematocrit 38.0 % (37.0-47.0); Hemoglobin 11.8 g/dL (12.0-15.0); Mean Corpuscular HGB Conc 31.1 g/dl (32-36); Mean Corpuscular Hemoglobin 29.4 pg (26-34); Mean Corpuscular Volume 94.8 fl (80-100); Platelet Count Result 197 k/mm3 (150-375); Red Blood Count 4.01 M/mm3 (4.2-5.4); White Blood Count 13.2 K/mm3 (4.5-10.0)
[2025-09-01 18:49] LABS: Glucose 1 Hour PP 50gm Dose 81 mg/dL
[2025-09-01 19:19] LABS: Syphilis IgG/IgM Antibody Non-Reactive (Nonreactive)
[2025-09-01 19:32] LABS: HIV 1/2 Ab P24 Ag Result Negative (Negative)
== END 2025-09-01 15:23 | disposition home or self-care (01) ==
LOC: ANHLAB 15:24
PROVIDERS: PCP Physician Assistant Medical; Visit Provider Student in an Organized Health Care Education/Training Program
DX: Z34.90 Encounter for supervision of normal pregnancy, unspecified, unspecified trimester (principal)
CPT/HCPCS: 36415; 82947; 85027; 86593; 86703; G0432